=== PATIENT | female | born 1970 | race Caucasian/White ===

== ENCOUNTER 2020-04-22 14:07 | Emergency (ER) | payer MEDICARE ==
[~2020-04-22] VITALS: Ht 170.2 cm; Wt 104.3 kg
== END 2020-04-22 16:23 | disposition home or self-care (01) ==
LOC: ED 14:07
DX: R45.1 Restlessness and agitation (principal); F17.200 Nicotine dependence, unspecified, uncomplicated; Z88.0 Allergy status to penicillin
CPT/HCPCS: 80053; 80176; 84443; 84703; 85025; 99285-25; G0480

== ENCOUNTER 2022-05-14 12:41 | Emergency (ER) | payer MEDICARE, MEDICAID ==
[~2022-05-14] VITALS: Ht 170.2 cm; Wt 108.0 kg
[2022-05-14] MEDS ORDERED: VENTOLIN HFA18 GM INH (13:07)
[2022-05-14] MEDS ORDERED: PREDNISONE20 MG PO (14:14)
[2022-05-14] MEDS ORDERED: BENZONATATE100 MG PO (14:14)
== END 2022-05-14 14:45 | disposition home or self-care (01) ==
LOC: ED 12:41
DX: J20.9 Acute bronchitis, unspecified (principal); F17.200 Nicotine dependence, unspecified, uncomplicated; Z20.822 Contact with and (suspected) exposure to COVID-19; Z88.0 Allergy status to penicillin; Z88.8 Allergy status to other drugs, medicaments and biological substances
CPT/HCPCS: 71046; 87502; 99284-25; A9270; C9803; J7512; U0003